=== PATIENT | female | born 1990 | race Caucasian/White ===

== ENCOUNTER 2017-07-27 12:19 | Emergency (ER) | payer OTHER ==
[~2017-07-27 12:19] MED LIST: PROT40TA PO; ZOFR4TAB3 SL
--- NOTE | 2017-07-27 13:11 | PD ---
HPI Chief Complaint Spotting Date Seen: Jul 27, 2017 Time Seen: 13:06 Travel History International Travel<30 Days: No Contact w/Intl Traveler<30Days: No Known Affected Area: No History of Present Illness HPI 26-year-old 2 para 0 at 27+ weeks gestation who reports having small amount of spotting. She denies any contractions or abdominal pain. She reports good movement. No leakage of fluid. History Past Medical History Medical History: Denies Significant Hx Past Surgical History Surgical History: No Previous Surgery Family History Family History: Negative Social History Alcohol Use: No Tobacco Use: No Substance Abuse: No Allergies-Medications (Allergen,Severity, Reaction): Coded Allergies: latex (Unverified Allergy, Severe, THROAT SWELLS, 10/08/16) penicillin G (Unverified Allergy, Intermediate, Rash, 10/08/16) amoxicillin (Unverified Allergy, Unknown, 10/08/16) Home Meds Active Scripts Pantoprazole Sodium (Protonix) 40 Mg Tab, 40 MG PO DAILY for 30 Days, TAB Prov:Jens Whalen DO 09/28/14 Ondansetron (Zofran ODT) 4 Mg Tab, 4 MG SL Q6H Y for nausea, #15 TAB FOR NAUSEA/VOMITING Prov:Jens Whalen DO 09/28/14 Review of Systems Except as stated in HPI: all other systems reviewed are Neg Physical Exam Narrative GENERAL: Well-nourished, well-developed patient. SKIN: Warm and dry. HEAD: Normocephalic and atraumatic. EYES: No scleral icterus. No injection or drainage. ENT: No nasal drainage noted. Mucous membranes pink. Airway patent. NECK: Supple, trachea midline. No JVD. CARDIOVASCULAR: Regular rate and rhythm without murmurs, gallops, or rubs. RESPIRATORY: Breath sounds equal bilaterally. No accessory muscle use. ABDOMEN/GI: Abdomen soft, non-tender, bowel sounds present, no rebound, no guarding Gravid to [-] weeks size Fundal Height: [-] GENITOURINARY: External Genitalia: intact and normal in appearance BUS glands: [-Negative] Cervix: [-] Dilatation: [-Closed] Effacement: [Long-] Station: [High-] Presentation: [-] Membranes: [intact ] Uterine Contractions: [-None] Speculum exam demonstrates a white discharge in the vagina that appears physiologic. There is no evidence of bleeding whatsoever. The area around the anus shows a small amount of bright red blood without obvious hemorrhoid. FHT's: Category: [-1] Baseline: [-] Reactive: [Yes-] Variability: [-] Decels: [-] EXTREMITIES: No cyanosis or edema. BACK: Nontender without obvious deformity. No CVA tenderness. NEUROLOGICAL: Awake and alert. Motor and sensory grossly within normal limits. Five out of 5 muscle strength in all muscle groups. Normal speech. Data Data Vital Signs Reviewed: Yes MDM Medical Record Reviewed: Yes Narrative Course / MDM Assessment: Rectal spotting Plan: We discussed management of constipation and she is scheduled for follow- up visit this week with Dr. Rambo Byers.. Diagnosis Diagnosis: Primary Impression: 27 weeks gestation of Additional Impression: Rectal bleeding Disposition: DISCHARGE HOME Condition: Good Livan Villegas MD Jul 27, 2017 13:11
== END 2017-07-27 13:21 | disposition home or self-care (01) ==
LOC: HOBED 12:19
DX: O26.892 Other specified pregnancy related conditions, second trimester (principal); K62.5 Hemorrhage of anus and rectum; Z3A.27 27 weeks gestation of pregnancy; Z88.0 Allergy status to penicillin
CPT/HCPCS: 99285

== ENCOUNTER 2017-10-18 21:01 | Inpatient (IN) ==
--- NOTE | 2017-10-18 21:30 | ED ---
History of Present Illness Primary Care Physician: NOT REQUIRED History of Present Illness: Chief complaint: Contractions 26-year-old 010, IUP at 39.3 care complicated by rheumatoid arthritis The patient presents complaining of the onset of contractions Friday, 4 days ago. She reports that they increased in intensity and frequency yesterday and she was evaluated last night with a cervical exam of 2 cm dilated. She reports that since 330 this afternoon they have significantly increased in intensity and frequency and are now occurring every 3-4 minutes. There are no alleviating factors. She took numerous showers this afternoon sitting on a shower stool but that is no longer helping. She denies any leaking of fluid or vaginal bleeding. She denies any right upper quadrant or epigastric pain, denies any visual changes. She reports a mild headache, but reports she hasn't been able to sleep for 2 days and hasn't eaten very well over the past 2 days. 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, denies abnormal Paps or STDs PMH: Rheumatoid arthritis FH: Denies PSH: Denies SH: Denies Allergies/Meds: As per EMR Review of Systems All other systems reviewed negative except as stated in HPI PMFSH - History History Provided By: Patient - Medical History Medical History: Medical History (Last Updated 09/18/17 @ 19:15 by Sissy Kline MD) Rheumatoid arthritis (Acute) - Tobacco History Second Hand Smoke Exposure: No Smoking Status: Never smoker - Alcohol History How Often Do You Have a Drink Containing Alcohol: Never - Substance Use History Substance History: No History of Abuse Medications and Allergies Allergies Allergy/AdvReac Type Severity Reaction Status Date / Time latex Allergy Severe THROAT Verified 09/18/17 17:36 SWELLS penicillin G Allergy Intermediate Rash Verified 09/18/17 17:36 amoxicillin Allergy Unknown Rash Verified 09/18/17 17:36 Home Medications Medication Instructions Recorded Confirmed Type Vitamin 1 tab PO DAILY 09/11/17 10/18/17 History Exam Vital signs: Vital Signs 10/18/17 21:19 Temperature 97.8 F Pulse Rate 103 H Respiratory Rate 22 Blood Pressure 145/79 H Narrative: GENERAL: Well-nourished, well-developed patient. SKIN: Warm and dry. No rashes, lesions, masses noted HEAD: Normocephalic and atraumatic. EYES: No scleral icterus. No injection or drainage. ENT: No nasal drainage noted. Mucous membranes pink. Airway patent. NECK: Supple, trachea midline. No JVD. CARDIOVASCULAR: Regular rate and rhythm without murmurs, gallops, or rubs. RESPIRATORY: Breath sounds equal bilaterally. No accessory muscle use. BREASTS: Deferred ABDOMEN/GI: Abdomen soft, non-tender, bowel sounds present, no rebound, no guarding Gravid GENITOURINARY: Normal EGBUS. No cervical or vaginal masses noted, physiologic discharge, grossly normal rugated. SVE 3/complete/-2 BB OW. Ultrasound was placed to confirm cyst cephalic presentation. FHT's: heart tones in the 150s with moderate long-term variability, good accelerations, no decelerations noted. This is a reactive NST and category 1 heart rate tracing. EXTREMITIES: No cyanosis or edema. BACK: Nontender without obvious deformity. NEUROLOGICAL/psychiatric: Awake and alert. Motor and sensory grossly within normal limits. Five out of 5 muscle strength in all muscle groups. Normal speech Grossly normal memory/affect. Grossly normal range of motion. Oriented 3. Results - Labs CBC & Chem 7: 10/18/17 21:30 10/18/17 21:30 Assessment and Plan - Plan Assessment/plan: 1. IUP at 39.3 2. Early active vs late latent labor: Patient presented at 3 cm dilated and completely effaced and is a change from one day prior when her exam was 2 cm dilated and 80% effaced. Expectant management for now, defer further management to Dr. Gregorio. 3. Rheumatoid arthritis: patient reports she is on no medications 4. Gestational Hypertension: will admit for elevated blood pressures at term. No specific signs or symptoms of preeclampsia, although patient reports a mild headache. Will monitor closely. Preeclampsia labs sent to lab. 5. well-being: reassuring testing with reactive NST and category 1 heart rate tracing, continue monitoring 6. Obesity 7. EFW per patient report on 10/07/17 was 8 pounds. Normal gestational 1 hour GCT per patient report. Discussed risks of including shoulder dystocia and risks of delivery if indicated. Risks include but are not limited to pain, infection, bleeding, injury to bladder/bowels/nerves/vessels, injury to baby, need for a repeat operation, need for a blood transfusion, need for hysterectomy, wound infection and breakdown, and other possible risks. All of the patients questions were answered and she will be admitted to Dr. Gregorio who has assumed care for the patient. Discharge Plan - Discharge Condition Condition: Stable - Physicians Team Primary Care Provider: NOT REQUIRED, Attending Provider: Jac Perez Rxs /Orders / Referrals /Forms Prescriptions: No Action Vitamin tablet 1 tab PO DAILY Referrals: Rip Grimaldo MD [Family Provider] - See Instructions NOT REQUIRED, [Primary Care Provider] - See Instructions
[2017-10-18] MEDS ORDERED: fentaNYL Citrate Inj 100 MCG/2 ML Ampul IV.PUSH ONE (21:40)
[2017-10-18 23:13] LABS: Baso # (Auto) 0.1 th/mm3 (0.0-0.2); Baso % (Auto) 0.7 % (0.0-2.0); Eos % (Auto) 0.3 % (0.0-4.0); Hematocrit 32.5 % (35.0-46.0); Hemoglobin 10.9 gm/dL (11.6-15.3); Lymph # (Auto) 1.8 th/mm3 (1.0-4.8); Lymph % (Auto) 11.2 % (9.0-44.0); Mean Corpuscular HGB Conc 33.7 % (32.0-36.0); Mean Corpuscular Hemoglobin 26.8 pg (27.0-34.0); Mean Corpuscular Volume 79.7 fL (80.0-100.0); Mean Platelet Volume 11.1 fL (7.0-11.0); Mono # (Auto) 0.8 th/mm3 (0.0-0.9); Mono % (Auto) 5.2 % (0.0-8.0); Neut # (Auto) 13.3 th/mm3 (1.8-7.7); Neut % (Auto) 82.6 % (16.0-70.0); Platelet Count 202 th/mm3 (150-450); Red Blood Count 4.08 mil/mm3 (4.00-5.30); Red Cell Distribution Width 14.6 % (11.6-17.2); White Blood Count 16.1 th/mm3 (4.0-11.0)
[2017-10-18] MEDS ORDERED: fentaNYL 2MCG-Bupiv 0.125% Epi 150 ML EPIDURAL ONE (23:22)
[2017-10-18] MEDS ORDERED: Sodium Chlor 0.9% Inj 500 ML IV.SIG PRN (23:25)
[2017-10-18] MEDS ORDERED: Sod Chloride 0.9% Inj 1,000 ML IV.CONT PRN (23:25)
[2017-10-18] MEDS ORDERED: Oxytocin 30 Units/500ml Premix 30 UNITS/500 ML BAG IV.SIG ONE (23:25)
[2017-10-18] MEDS ORDERED: Naloxone Inj 0.4 MG/ML Vial IV.PUSH PRN (23:25)
[2017-10-18] MEDS ORDERED: fentaNYL Citrate Inj 100 MCG/2 ML Ampul IV.PUSH PRN ×2 (23:25)
[2017-10-18] MEDS ORDERED: Citric Acid/Sodium Citrate Liq 30 ML UDC PO SCH (23:30)
[2017-10-18 23:38] LABS: Albumin 2.6 g/dL (3.4-5.0); Anion Gap 14 meq/L (5-15); Aspartate Aminotransferase 16 U/L (15-37); Blood Urea Nitrogen 10 mg/dL (7-18); Calcium 8.5 mg/dL (8.5-10.1); Carbon Dioxide 21.3 meq/L (21.0-32.0); Chloride 103 meq/L (98-107); Glomerular Filtration Rate 83 mL/min (>89); Glucose,Random 77 mg/dL (74-106); Potassium 3.6 meq/L (3.5-5.1); Sodium 138 meq/L (136-145)
[2017-10-18 23:39] LABS: Alanine Aminotransferase 14 U/L (10-53)
[2017-10-18 23:41] LABS: Alkaline Phosphatase 161 U/L (45-117); Total Protein 7.7 g/dL (6.4-8.2)
[2017-10-19] MEDS ORDERED: fentaNYL Citrate Inj 100 MCG/2 ML Ampul EPIDURAL ONE (00:19)
[2017-10-19 00:26] LABS: Bacteria,Urine Few /hpf; Bilirubin,Urine Negative (Negative); Clarity,Urine Cloudy (Clear); Color,Urine Yellow (Yellw/Straw); Glucose,Urine (UA) Negative (Negative); Leukocyte Esterase,Urine Large (Negative); Nitrite,Urine Negative (Negative); Specific Gravity,Urine 1.013 (1.002-1.035); Squamous Epithelial Cell,Urine 7 /hpf (0-5)
[2017-10-19] MEDS: fentaNYL 2MCG-Bupiv 0.125% Epi 150 ML EPIDURAL PRN ×3 (00:32→19:13)
[2017-10-19 00:39] LABS: Amphetamine Urine With Conf Neg (Neg); Benzodiazepine Urine With Conf Neg (Neg)
[2017-10-19 02:02] LABS: Protein/Creatinine Ratio,Urine 1.24 (0.00-0.14)
[2017-10-19] MEDS ORDERED: Lidocaine 1% Inj 50 ML Vial ONE (07:18)
[2017-10-19] MEDS ORDERED: Oxytocin 30 Units/500ml Premix 30 UNITS/500 ML BAG IV.SIG PRN (08:18)
[2017-10-19] MEDS ORDERED: Bupivacaine PF 0.25% Inj 10 ML Vial ONE ×2 (09:14→12:52)
--- NOTE | 2017-10-19 09:46 | P.OBGPN ---
S: Doing well, pain controlled, Patient presented for rule out labor, was found to have elevated blood pressures. O: Exam: Cervix 5-6cm/80/-1, SROM prior to this check, blood / clear fluid FHTs: 130s-140s, moderate variability, accelerations present, no decelerations TOCO: Rare contractions A/P 26-year-old at 39 weeks and 2 days admitted for augmentation of labor and preeclampsia without severe features. 1. IUP: Category 1 tracing -Cephalic, GBS negative, EFW 7.5 pounds clinically -EFW (10/07) = 3647g (80%) 2. Labor augmentation: SROm (0950), continue Pitocin, anticipate 3. Preeclampsia without severe features: HELLP labs normal, based on mild range blood pressures and P: C of 1.2.
[2017-10-19] MEDS ORDERED: Lidocaine 2%/Epinephrine 1:200,000 PF Inj 20 ML Vial INFILTRATN ONE (12:00)
[2017-10-19] MEDS ORDERED: Phenylephrine/NS 1000 MCG/10ML Syringe IV.PUSH ONE (12:00)
[2017-10-19] MEDS ORDERED: Citric Acid/Sodium Citrate Liq 30 ML UDC PO SCH (20:45)
[2017-10-19] MEDS ORDERED: fentaNYL Citrate Inj 250 MCG/5 ML Ampul ONE (20:52)
[2017-10-19] MEDS ORDERED: Morphine Sulfate PF Inj 5 MG/10 ML Ampul ONE (20:53)
--- NOTE | 2017-10-19 20:54 | P.OBGPN ---
S: Doing well, feeling exhausted Patient presented for rule out labor, was found to have elevated blood pressures. O: Exam: : complete, +1 station, caput present, OP position, attempted to manual rotate FHTs: 150s, moderate variability, accelerations present, no decelerations TOCO: contractions every 3-5 minutes A/P 26-year-old at 39 weeks and 2 days admitted for augmentation of labor and preeclampsia without severe features. 1. IUP: Category 1 tracing -Cephalic, GBS negative, EFW 7.5 pounds clinically -EFW (10/07) = 3647g (80%) 2. Arrest of descent: Patient has pushed for approximately 2-1/2 hours with minimal to no descent, and OP position via ultrasound, attempted manual rotation and unsuccessful, discussed option of vacuum attempted delivery and patient declined, discussed risks, benefits and expected outcomes and alternatives of . We will proceed within 30 minutes. Give gentamicin, clindamycin and azithromycin for preoperative prophylaxis. - T&C x 2 given plan for , anemia and prolonged labor. 3. Preeclampsia without severe features: HELLP labs normal, based on mild range blood pressures and P: C of 1.2. Avoid use of methergine
[2017-10-19] MEDS ORDERED: SODIUM CHLOR 0.9% IV.SIG ONE (21:00)
[2017-10-19] MEDS ORDERED: Clindamycin Inj 900 MG in Sodium Chlor 0.9% Inj 100 ML IV.SIG ONE (21:00)
[2017-10-19] MEDS ORDERED: Azithromycin Inj 500 MG in Sodium Chlor 0.9% Inj 250 ML IV.SIG ONE (21:00)
[2017-10-19] MEDS ORDERED: Clindamycin 900 mg/NS Premix 900 MG/50 ML PIGGYBACK IV.SIG ONE (21:00)
[2017-10-19] MEDS ORDERED: GENTAMICIN IV.SIG ONE (21:00)
--- NOTE | 2017-10-19 21:05 | P.OP ---
Date of procedure: 10/19/17 Surgeon: Fabio Gregorio MD Operation and Findings: Preoperative diagnosis: 1. Intrauterine at 39 weeks and 2 days 2. Arrest of descent 3. Preeclampsia without severe features 4. Obesity Postop diagnosis 1. Same as above status post primary 2. hemorrhage Procedure 1. Primary low transverse section Surgeon Dr. Fabio Gregorio Protective Signal Repairer: [facility] surgical scrub staff Findings: 1. Viable male infant at 2134, OP position weight, Apgars 6 and 8, weight 3870 g 2. Intact placenta with three-vessel cord at 2136 3. Normal uterus, bilateral fallopian tubes and ovaries 4. Mild uterine atony, laceration to the right ascending uterine artery, superficial abrasions to small superficial veins on the right lateral posterior uterus. Anesthesia: Epidural Specimen: Placenta to disposal Estimated blood loss: 5414-3714 cc Fluid replacement: 1800 cc lactated Ringer's and Pitocin Urine output: 100 cc of concentrated urine clear Via [place] DVT prophylaxis: Sequential compression devices throughout the case Antibiotics: 900 mg IV clindamycin, 500 mg IV azithromycin, 80 mg IV gentamicin preoperatively. Medications: 0.25 mg IM Hemabate x1 Counts: correct x2 Time out done: yes Disposition: Stable to PACU then A stat CBC and coags were collected at the end of the case. Indications: Patient is a 26-year-old 010 now P1011 who presented in early labor however was diagnosed with preeclampsia, she was augmented after her water ruptured spontaneously with Pitocin, she progressed to complete with reassuring heart tones, she pushed for 2.5-3 hours with little to no descent past +1 station with It in an OP position discussed options and patient elected for . Description of procedure: The patient was taken to the operating room and after spinal anesthesia was performed she was positioned and supine position with arms out in a left lateral tilt, the abdomen was prepped and draped in sterile fashion, a Pfannenstiel incision was made and carried down sharply to the fascia which was nicked on either side of the midline, this was extended bilaterally, the fascia was elevated superiorly and inferiorly and the rectus muscles were sharply dissected off the overlying fascia, the peritoneum was entered digitally and retracted laterally. A bladder flap was developed with Metzenbaum scissors at the lower uterine segment, the hysterotomy was made in the lower uterine segment with a scalpel in a curvilinear fashion, it was extended cephalad-caudad manner, a nurse provided assistance from below via the vagina elevating the head out of the pelvis, I inserted my hand into the hysterotomy and the head was elevated to the hysterotomy and with fundal pressure was delivered. With gentle downward and upward guidance the anterior and posterior shoulder was delivered, followed by the torso and lower extremities with ease, the infant had spontaneous cry the cord was clamped and cut, the was handed off to nursing staff after delayed cord clamping was allowed. Pitocin was bolused and with uterine massage and cord traction the placenta was delivered, uterus was cleared of clot and debris, the uterus was exteriorized and the hysterotomy was closed with 2 layers, first with 0 locking delayed absorbable suture, and a second imbricating layer of the same suture. There is a laceration to the right ascending uterine artery and a single [place] stitch of 0 Vicryl was placed. The posterior aspect of the uterus was inspected and there were superficial veins that had small lacerations and using near the ovary. They were grasped coapted and the Bovie applied to the smooth grasper. The vessels were no longer bleeding and hemostasis was appreciated. Adriana powder was applied for reassurance. The abdomen and hysterotomy were irrigated, inspected, and found to be hemostatic. The fascia was closed from left to right with 0 running delayed absorbable suture. The subcutaneous tissue was irrigated, inspected, hemostasis was appreciated. The subcutaneous space was reapproximated with 3-0 Monocryl. The skin was closed with 3-0 Monocryl in a subcuticular fashion and then a dressing was applied and the patient tolerated procedure well was transferred to PACU.
[2017-10-19] MEDS ORDERED: Clindamycin Inj 600 MG/4 ML Vial ONE (21:19)
[2017-10-19] MEDS ORDERED: Carboprost Tromethamine Inj 250 MCG/ML Ampul IM ONE (21:57)
[2017-10-19] MEDS ORDERED: Oxytocin 30 Units/500ml Premix 30 UNITS/500 ML BAG IV.SIG ONE (22:49)
[2017-10-19] MEDS ORDERED: Acetaminophen 325 MG Tablet PO PRN (22:49)
[2017-10-19 23:20] LABS: Baso % (Auto) 0.2 % (0.0-2.0); Hematocrit 28.4 % (35.0-46.0); Hemoglobin 9.2 gm/dL (11.6-15.3); Lymph # (Auto) 0.7 th/mm3 (1.0-4.8); Lymph % (Auto) 5.2 % (9.0-44.0); Mean Corpuscular HGB Conc 32.3 % (32.0-36.0); Mean Corpuscular Hemoglobin 26.1 pg (27.0-34.0); Mean Corpuscular Volume 80.5 fL (80.0-100.0); Mean Platelet Volume 10.3 fL (7.0-11.0); Mono # (Auto) 0.5 th/mm3 (0.0-0.9); Mono % (Auto) 3.9 % (0.0-8.0); Neut # (Auto) 12.5 th/mm3 (1.8-7.7); Neut % (Auto) 90.7 % (16.0-70.0); Platelet Count 171 th/mm3 (150-450); Red Blood Count 3.53 mil/mm3 (4.00-5.30); Red Cell Distribution Width 14.6 % (11.6-17.2); White Blood Count 13.8 th/mm3 (4.0-11.0)
[2017-10-19 23:20] LABS: Activated Partial Thrombo Time 27.2 sec (24.3-30.1)
[2017-10-20] MEDS ORDERED: Naloxone Inj 0.4 MG/ML Vial IV.PUSH PRN (00:09)
[2017-10-20] MEDS ORDERED: Oxytocin 30 Units/500ml Premix 30 UNITS/500 ML BAG IV.SIG PRN (03:50)
[2017-10-20 06:01] LABS: Baso % (Auto) 0.1 % (0.0-2.0); Eos % (Auto) 0.1 % (0.0-4.0); Hematocrit 25.6 % (35.0-46.0); Hemoglobin 8.4 gm/dL (11.6-15.3); Lymph # (Auto) 0.9 th/mm3 (1.0-4.8); Mean Corpuscular HGB Conc 32.8 % (32.0-36.0); Mean Corpuscular Hemoglobin 26.6 pg (27.0-34.0); Mean Corpuscular Volume 80.9 fL (80.0-100.0); Mean Platelet Volume 9.7 fL (7.0-11.0); Mono # (Auto) 0.8 th/mm3 (0.0-0.9); Mono % (Auto) 5.1 % (0.0-8.0); Neut % (Auto) 88.7 % (16.0-70.0); Platelet Count 155 th/mm3 (150-450); Red Blood Count 3.16 mil/mm3 (4.00-5.30); Red Cell Distribution Width 14.7 % (11.6-17.2); White Blood Count 15.8 th/mm3 (4.0-11.0)
[2017-10-20 06:42] LABS: Alanine Aminotransferase 14 U/L (10-53); Albumin 1.8 g/dL (3.4-5.0); Alkaline Phosphatase 106 U/L (45-117); Anion Gap 12 meq/L (5-15); Aspartate Aminotransferase 34 U/L (15-37); Blood Urea Nitrogen 9 mg/dL (7-18); Calcium 7.5 mg/dL (8.5-10.1); Carbon Dioxide 22.5 meq/L (21.0-32.0); Chloride 103 meq/L (98-107); Glomerular Filtration Rate 73 mL/min (>89); Glucose,Random 90 mg/dL (74-106); Sodium 137 meq/L (136-145); Total Protein 5.8 g/dL (6.4-8.2)
[2017-10-20 08:04] LABS: Lymphocytes 5 % (9-44); Monocytes 3 % (0-8); Tallied Nucleated RBC 1 (0-0)
[2017-10-20 08:05] LABS: Platelet Estimate Normal (Normal); Platelet Morphology Normal (Normal)
--- NOTE | 2017-10-20 11:40 | P.PNOB ---
Subjective Post op day: 1 Objective Vital Signs/I&O: Vital Signs 10/19/17 11:39 10/19/17 12:16 10/19/17 12:28 Temperature Pulse Rate 91 H 98 H Respiratory Rate 17 17 Blood Pressure 133/86 128/84 10/19/17 12:43 10/19/17 13:00 10/19/17 13:01 Temperature 97.9 F Pulse Rate 84 93 H 107 H Respiratory Rate 19 19 Blood Pressure 124/78 135/93 H 108/56 L 10/19/17 13:30 10/19/17 13:47 10/19/17 13:55 Temperature Pulse Rate 102 H 96 H Respiratory Rate 20 20 Blood Pressure 146/84 H 127/85 10/19/17 14:04 10/19/17 14:16 10/19/17 14:30 Temperature 98.6 F Pulse Rate 104 H 84 Respiratory Rate 20 20 Blood Pressure 129/89 120/82 10/19/17 14:31 10/19/17 14:46 10/19/17 15:00 Temperature Pulse Rate 108 H 91 H Respiratory Rate 20 Blood Pressure 124/90 131/93 H 10/19/17 15:01 10/19/17 15:28 10/19/17 15:31 Temperature Pulse Rate 105 H 99 H 94 H Respiratory Rate 20 Blood Pressure 127/76 130/84 130/80 10/19/17 15:57 10/19/17 16:00 10/19/17 16:16 Temperature 99.0 F Pulse Rate 104 H Respiratory Rate 20 Blood Pressure 134/90 10/19/17 16:26 10/19/17 16:30 10/19/17 16:56 Temperature Pulse Rate 102 H 90 Respiratory Rate 20 20 Blood Pressure 137/98 H 124/84 10/19/17 17:00 10/19/17 17:16 10/19/17 17:26 Temperature Pulse Rate 94 H 96 H Respiratory Rate 20 Blood Pressure 134/94 H 138/91 H 10/19/17 17:31 10/19/17 17:58 10/19/17 18:00 Temperature 98.0 F Pulse Rate 93 H 99 H Respiratory Rate 20 Blood Pressure 119/74 139/74 10/19/17 18:16 10/19/17 18:30 10/19/17 18:45 Temperature Pulse Rate 102 H 95 H 90 Respiratory Rate 20 Blood Pressure 129/62 131/83 142/79 H 10/19/17 19:00 10/19/17 19:25 10/19/17 19:55 Temperature Pulse Rate 98 H 109 H 107 H Respiratory Rate Blood Pressure 131/82 146/74 H 134/78 10/19/17 20:01 10/19/17 20:10 10/19/17 20:35 Temperature Pulse Rate 98 H 92 H 102 H Respiratory Rate Blood Pressure 112/64 118/74 10/19/17 20:40 10/19/17 20:45 10/19/17 22:49 Temperature 98.4 F Pulse Rate 99 H 97 H Respiratory Rate 20 17 Blood Pressure 104/55 L 10/19/17 23:15 10/19/17 23:30 10/19/17 23:46 Temperature Pulse Rate 92 H 93 H 89 Respiratory Rate 18 16 22 Blood Pressure 127/71 115/62 124/63 10/19/17 23:48 10/20/17 00:55 10/20/17 05:00 Temperature 98.0 F 98.5 F 98.7 F Pulse Rate 89 102 H Respiratory Rate 8 L 20 Blood Pressure 121/69 125/71 10/20/17 08:00 Temperature 99.0 F Pulse Rate 105 H Respiratory Rate 18 Blood Pressure 99/60 L Intake & Output 10/19/17 10/20/17 10/20/17 18:59 06:59 18:59 Intake Total 1000 / 1000 Balance 1000 / 1000 Intake: IV 1000 / 1000 LR 1000 mL Inj 1,000 ML @ 125 1000 / 1000 mls/hr IV.CONT .Q8H [facility] Rx#: [id number] Result Diagrams: 10/20/17 05:23 10/20/17 05:23 Objective Remarks: GENERAL: Well-nourished, well-developed patient. CARDIOVASCULAR: Regular rate and rhythm without murmurs, gallops, or rubs. RESPIRATORY: Breath sounds equal bilaterally. No accessory muscle use. ABDOMEN/GI: Abdomen soft, non-tender, bowel sounds present. Incision: dressing, Clean, dry and intact. Fundus: Firm, non-tender at umbilicus. GENITOURINARY: Light to moderate bleeding. monroe to BSD-clear yellow EXTREMITIES: No cyanosis or edema, non-tender, without signs of DVT. Medications and IVs: Active Medications Acetaminophen (Tylenol) 650 mg PO Q6H PRN PRN Reason: PAIN SCALE 1 TO 2 Diphenhydramine HCl (Benadryl) 50 mg PO Q6H PRN PRN Reason: MILD TO MODERATE ITCHING Stop: 10/21/17 00:08 Diphenhydramine HCl (Benadryl Inj) 25 mg IV.PUSH Q6H PRN PRN Reason: MILD TO MODERATE ITCHING Stop: 10/21/17 00:08 Diphtheria/Pertussis/Tetanus Vacc (Boostrix Vaccine Inj) 0.5 ml IM .ONCE ONE Stop: 10/20/17 16:01 Lactated Ringer's (Lr 1000 Ml Inj) 1,000 mls @ 100 mls/hr IV.CONT .Q10H LINDA Stop: 10/20/17 23:49 Last Admin: 10/20/17 06:01 Dose: Not Given Oxytocin (Pitocin 30 Units/Ns 500 Ml Premix) 30 units in 500 mls @ 100 mls/hr IV.SIG UNSCH PRN PRN Reason: Heavy bleeding Ibuprofen (Motrin) 800 mg PO Q8H PRN PRN Reason: cramping Last Admin: 10/20/17 09:15 Dose: 800 mg Measles/Mumps/Rubella Vaccine Live (M-M-R Ii Vaccine Inj) 0.5 ml SQ .ONCE ONE Stop: 10/20/17 16:01 Miscellaneous Information ([facility] Nursing Information) 1 each OTHER UNSCH PRN PRN Reason: SEE LABEL COMMENTS Stop: 10/21/17 00:08 Miscellaneous Information ([facility] Nursing Information) 1 each OTHER UNSCH PRN PRN Reason: SEE LABEL COMMENTS Stop: 10/21/17 00:08 Naloxone HCl (Narcan Inj) 0.4 mg IV.PUSH UNSCH PRN PRN Reason: SEE LABEL COMMENTS Stop: 10/21/17 00:08 Oxycodone/Acetaminophen (Percocet 5/325 Mg) 1 tab PO Q4H PRN PRN Reason: PAIN SCALE 3 TO 5 Last Admin: 10/20/17 09:14 Dose: 1 tab Oxycodone/Acetaminophen (Percocet 5/325 Mg) 2 tab PO Q4H PRN PRN Reason: PAIN SCALE 6 TO 10 Sodium Chloride (Ns Flush) 2 ml IV.FLUSH BID LINDA Sodium Chloride (Ns Flush) 2 ml IV.FLUSH PRN PRN PRN Reason: FLUSH AFTER USING IV ACCESS Assessment and Plan - Diagnosis (1) Mild pre-eclampsia Code(s): O14.00 - Mild to moderate pre-eclampsia, unspecified trimester Status : Acute Plan: delivered, monitor bp (2) S/P primary low transverse Code(s): Z98.891 - History of uterine scar from previous surgery Status: Acute Plan: routine post op care (3) Anemia Code(s): D64.9 - Anemia, unspecified Status: Acute Plan: treat with daily iron as outpatient once she is no longer taking pain medication - Plan POD #1 pt doing well hgb 8.4, will treat as PP vss pain well managed with oral pain medication pt to ambulate today, get monroe out and shower bonding with infant routine care Discharge Planning: consider dc in 2 days
[2017-10-20] MEDS ORDERED: Diphtheria/Tetanus/Pertussis Vaccine Inj 0.5 ML Syringe IM ONE (16:00)
[2017-10-20] MEDS ORDERED: Measles/Mumps/Rubella Vaccine Inj 0.5 ML Vial SQ ONE (16:00)
[2017-10-21 08:55] LABS: Baso % (Auto) 0.3 % (0.0-2.0); Eos # (Auto) 0.2 th/mm3 (0.0-0.4); Eos % (Auto) 1.3 % (0.0-4.0); Hematocrit 22.1 % (35.0-46.0); Hemoglobin 7.2 gm/dL (11.6-15.3); Lymph # (Auto) 1.7 th/mm3 (1.0-4.8); Lymph % (Auto) 10.7 % (9.0-44.0); Mean Corpuscular HGB Conc 32.5 % (32.0-36.0); Mean Corpuscular Hemoglobin 26.3 pg (27.0-34.0); Mean Platelet Volume 8.7 fL (7.0-11.0); Mono # (Auto) 0.6 th/mm3 (0.0-0.9); Mono % (Auto) 3.6 % (0.0-8.0); Neut # (Auto) 13.1 th/mm3 (1.8-7.7); Neut % (Auto) 84.1 % (16.0-70.0); Platelet Count 179 th/mm3 (150-450); Red Blood Count 2.73 mil/mm3 (4.00-5.30); Red Cell Distribution Width 14.7 % (11.6-17.2); White Blood Count 15.6 th/mm3 (4.0-11.0)
[2017-10-21] MEDS: Simethicone 125 MG Chew Tablet PO PRN ×2 (11:04→23:07)
--- NOTE | 2017-10-21 14:25 | P.PNOB ---
Subjective Post op day: 2 Objective Vital Signs/I&O: Vital Signs 10/20/17 16:00 10/20/17 20:00 10/21/17 00:00 Temperature 97.8 F 98.2 F 99.2 F Pulse Rate 96 H 101 H 121 H Respiratory Rate 18 18 18 Blood Pressure 103/67 122/75 121/77 10/21/17 04:00 10/21/17 05:50 10/21/17 08:00 Temperature 99.7 F H 98.6 F 97.4 F L Pulse Rate 121 H 97 H Respiratory Rate 18 16 Blood Pressure 144/85 H 139/79 10/21/17 13:39 Temperature 97.4 F L Pulse Rate 97 H Respiratory Rate 16 Blood Pressure 139/79 Result Diagrams: 10/21/17 08:45 10/20/17 05:23 Objective Remarks: GENERAL: Well-nourished, well-developed patient. CARDIOVASCULAR: Regular rate and rhythm without murmurs, gallops, or rubs. RESPIRATORY: Breath sounds equal bilaterally. No accessory muscle use. ABDOMEN/GI: Abdomen soft, non-tender, bowel sounds hypoactive, distended with gas. Incision: steri strips Clean, dry and intact. Fundus: Firm, non-tender at umbilicus. GENITOURINARY: Light to moderate bleeding. EXTREMITIES: No cyanosis or edema, non-tender, without signs of DVT. Medications and IVs: Active Medications Acetaminophen (Tylenol) 650 mg PO Q6H PRN PRN Reason: PAIN SCALE 1 TO 2 Oxytocin (Pitocin 30 Units/Ns 500 Ml Premix) 30 units in 500 mls @ 100 mls/hr IV.SIG UNSCH PRN PRN Reason: Heavy bleeding Ibuprofen (Motrin) 800 mg PO Q8H PRN PRN Reason: cramping Last Admin: 10/21/17 04:41 Dose: 800 mg Oxycodone/Acetaminophen (Percocet 5/325 Mg) 1 tab PO Q4H PRN PRN Reason: PAIN SCALE 3 TO 5 Last Admin: 10/20/17 09:14 Dose: 1 tab Oxycodone/Acetaminophen (Percocet 5/325 Mg) 2 tab PO Q4H PRN PRN Reason: PAIN SCALE 6 TO 10 Last Admin: 10/21/17 04:41 Dose: 2 tab Simethicone (Phazyme Chew) 125 mg PO TID PRN PRN Reason: GAS RETENTION Last Admin: 10/21/17 11:04 Dose: 125 mg Sodium Chloride (Ns Flush) 2 ml IV.FLUSH BID LINDA Last Admin: 10/21/17 04:58 Dose: Not Given Sodium Chloride (Ns Flush) 2 ml IV.FLUSH PRN PRN PRN Reason: FLUSH AFTER USING IV ACCESS Assessment and Plan - Diagnosis (1) Mild pre-eclampsia Code(s): O14.00 - Mild to moderate pre-eclampsia, unspecified trimester Status : Acute Plan: delivered, monitor bp (2) S/P primary low transverse Code(s): Z98.891 - History of uterine scar from previous surgery Status: Acute Plan: routine post op care (3) Anemia Code(s): D64.9 - Anemia, unspecified Status: Acute Plan: treat with daily iron as outpatient once she is no longer taking pain medication - Plan POD #2 pt doing well hgb 7.2, will treat as outpatient with daily oral iron enies dizziness, chest pain or SOB with ambulation vss at 0800 pain well managed with oral pain medication bonding with routine care Discharge Planning: dc tomorrow
[2017-10-21] MEDS ORDERED: Senna/Docusate Sodium 8.6/50 MG Tablet PO PRN (16:33)
[2017-10-22 06:03] LABS: Mean Corpuscular HGB Conc 33.9 % (32.0-36.0); Mean Corpuscular Hemoglobin 26.9 pg (27.0-34.0); Mean Corpuscular Volume 79.3 fL (80.0-100.0); Mean Platelet Volume 8.3 fL (7.0-11.0); Platelet Count 187 th/mm3 (150-450); Red Blood Count 2.46 mil/mm3 (4.00-5.30); Red Cell Distribution Width 14.5 % (11.6-17.2); White Blood Count 11.5 th/mm3 (4.0-11.0)
[2017-10-22 06:21] LABS: Hemoglobin 6.6 gm/dL (11.6-15.3)
[2017-10-22 06:22] LABS: Hematocrit 19.5 % (35.0-46.0)
--- NOTE | 2017-10-22 08:37 | P.PNOB ---
Subjective Post op day: 3 Interval history: Doing well Pain is controlled Baby is doing well Dizzy when standing No chest pain or pressure, No SOB Objective Vital Signs/I&O: Vital Signs 10/21/17 13:39 10/21/17 14:45 10/21/17 14:46 Temperature 97.4 F L 98.1 F Pulse Rate 97 H 108 H Respiratory Rate 16 16 Blood Pressure 139/79 134/91 H 10/21/17 20:00 Temperature 98.1 F Pulse Rate 97 H Respiratory Rate 20 Blood Pressure 136/89 Result Diagrams: 10/22/17 05:41 10/20/17 05:23 Objective Remarks: GENERAL: Well-nourished, well-developed patient. CARDIOVASCULAR: Regular rate and rhythm without murmurs, gallops, or rubs. Borderline tachycardic RESPIRATORY: Breath sounds equal bilaterally. No accessory muscle use. ABDOMEN/GI: Abdomen soft, non-tender, bowel sounds present. Incision: Clean, dry and intact. Fundus: Firm, non-tender at umbilicus. GENITOURINARY: Light to moderate bleeding. EXTREMITIES: No cyanosis or edema, non-tender, without signs of DVT. Medications and IVs: Active Medications Acetaminophen (Tylenol) 650 mg PO Q6H PRN PRN Reason: PAIN SCALE 1 TO 2 Oxytocin (Pitocin 30 Units/Ns 500 Ml Premix) 30 units in 500 mls @ 100 mls/hr IV.SIG UNSCH PRN PRN Reason: Heavy bleeding Ibuprofen (Motrin) 800 mg PO Q8H PRN PRN Reason: cramping Last Admin: 10/21/17 23:04 Dose: 800 mg Oxycodone/Acetaminophen (Percocet 5/325 Mg) 1 tab PO Q4H PRN PRN Reason: PAIN SCALE 3 TO 5 Last Admin: 10/21/17 19:08 Dose: 1 tab Oxycodone/Acetaminophen (Percocet 5/325 Mg) 2 tab PO Q4H PRN PRN Reason: PAIN SCALE 6 TO 10 Last Admin: 10/22/17 03:07 Dose: 2 tab Senna/Docusate Sodium (Stefania-Colace) 1 tab PO DAILY PRN PRN Reason: CONSTIPATION Last Admin: 10/21/17 17:49 Dose: 1 tab Simethicone (Phazyme Chew) 125 mg PO TID PRN PRN Reason: GAS RETENTION Last Admin: 10/21/17 23:07 Dose: 125 mg Sodium Chloride (Ns Flush) 2 ml IV.FLUSH BID LINDA Last Admin: 10/22/17 06:18 Dose: Not Given Sodium Chloride (Ns Flush) 2 ml IV.FLUSH PRN PRN PRN Reason: FLUSH AFTER USING IV ACCESS Assessment and Plan - Diagnosis (1) Mild pre-eclampsia Code(s): O14.00 - Mild to moderate pre-eclampsia, unspecified trimester Status : Acute Plan: delivered, monitor bp (2) S/P primary low transverse Code(s): Z98.891 - History of uterine scar from previous surgery Status: Acute Plan: routine post op care (3) Anemia Code(s): D64.9 - Anemia, unspecified Status: Acute Plan: treat with daily iron as outpatient once she is no longer taking pain medication - Plan POD #2 Severe anemia..Large blood loss in the OR. Will repeat the CBC and give 2 units of PRBCs if still very low Discussed the RBA of blood transfusion in some detail. Mild pre eclampsia will follow up with BPs Clinically she looks ok Discharge Planning: dc tomorrow
[2017-10-22 09:02] LABS: Mean Corpuscular HGB Conc 34.1 % (32.0-36.0); Mean Corpuscular Hemoglobin 27.2 pg (27.0-34.0); Mean Corpuscular Volume 79.7 fL (80.0-100.0); Mean Platelet Volume 7.7 fL (7.0-11.0); Platelet Count 194 th/mm3 (150-450); Red Blood Count 2.53 mil/mm3 (4.00-5.30); Red Cell Distribution Width 14.7 % (11.6-17.2); White Blood Count 10.4 th/mm3 (4.0-11.0)
[2017-10-22] MEDS: Simethicone 125 MG Chew Tablet PO PRN (09:03)
[2017-10-22] MEDS: Bisacodyl 10 MG Supp RECTAL SCH (09:10)
[2017-10-22 09:19] LABS: Hematocrit 20.1 % (35.0-46.0); Hemoglobin 6.9 gm/dL (11.6-15.3)
[2017-10-22] MEDS ORDERED: Sodium Chlor 0.9% Inj 100 ML IV.SIG ONE (11:00)
[2017-10-22 18:45] VITALS: O2SAT 94
[2017-10-23 02:45] LABS: Hematocrit 29.8 % (35.0-46.0); Hemoglobin 10.1 gm/dL (11.6-15.3); Mean Corpuscular HGB Conc 33.9 % (32.0-36.0); Mean Corpuscular Volume 79.8 fL (80.0-100.0); Mean Platelet Volume 8.1 fL (7.0-11.0); Platelet Count 235 th/mm3 (150-450); Red Blood Count 3.74 mil/mm3 (4.00-5.30); Red Cell Distribution Width 14.6 % (11.6-17.2); White Blood Count 10.5 th/mm3 (4.0-11.0)
[2017-10-23] MEDS: Bisacodyl 10 MG Supp RECTAL SCH (09:10)
[2017-10-23 09:23] VITALS: BP 127/73
[2017-10-23 09:24] VITALS: PULSE 80; RESP 20; TEMP 97.7
--- NOTE | 2017-10-23 10:21 | P.PNOB ---
Subjective Post op day: 4 Objective Vital Signs/I&O: Vital Signs 10/22/17 13:56 10/22/17 14:13 10/22/17 14:30 Temperature 97.7 F 97.9 F 98.2 F Pulse Rate 85 91 H 88 Respiratory Rate 16 16 16 Blood Pressure 138/87 143/93 H 147/94 H Pulse Oximetry 97 98 10/22/17 15:00 10/22/17 15:30 10/22/17 16:00 Temperature 99.0 F 98.1 F 98.2 F Pulse Rate 95 H 93 H 95 H Respiratory Rate 16 16 16 Blood Pressure 143/79 H 150/90 H 126/87 Pulse Oximetry 95 95 95 10/22/17 16:30 10/22/17 17:00 10/22/17 18:11 Temperature 97.6 F 98.2 F 98.4 F Pulse Rate 94 H 93 H 98 H Respiratory Rate 16 16 16 Blood Pressure 138/81 138/81 127/88 Pulse Oximetry 96 95 96 10/22/17 18:43 10/22/17 19:15 10/22/17 19:45 Temperature 98.3 F 97.9 F 97.9 F Pulse Rate 97 H 95 H 91 H Respiratory Rate 18 18 18 Blood Pressure 134/84 153/95 H 133/79 Pulse Oximetry 94 L 10/22/17 20:15 10/22/17 20:45 10/22/17 22:38 Temperature 98.1 F 98.1 F 101.0 F H Pulse Rate 92 H 102 H 90 Respiratory Rate 18 18 20 Blood Pressure 136/83 127/80 147/91 H Pulse Oximetry 10/22/17 23:07 10/23/17 00:00 10/23/17 04:00 Temperature 100.6 F H 98.5 F 98.3 F Pulse Rate 97 H 84 Respiratory Rate 18 18 Blood Pressure 145/87 H 122/76 Pulse Oximetry 10/23/17 08:50 Temperature 97.7 F Pulse Rate 80 Respiratory Rate 20 Blood Pressure 127/73 Pulse Oximetry Intake & Output 10/22/17 10/23/17 10/23/17 18:59 06:59 18:59 Intake Total 400 / 400 Balance 400 / 400 Intake: Intake (Blood Product) Amt 400 / 400 Rbc As-3 Leukoreduced Unit 400 / 400 [id number] Rbc As-3 Leukoreduced Unit 0 / 0 [id number] Result Diagrams: 10/23/17 02:30 10/20/17 05:23 Objective Remarks: GENERAL: Well-nourished, well-developed patient. CARDIOVASCULAR: Regular rate and rhythm without murmurs, gallops, or rubs. RESPIRATORY: Breath sounds equal bilaterally. No accessory muscle use. ABDOMEN/GI: Abdomen soft, non-tender, bowel sounds present. Incision: steri strips, Clean, dry and intact. Fundus: Firm, non-tender at umbilicus. GENITOURINARY: Light to moderate bleeding. EXTREMITIES: No cyanosis or slight bilateral edema to lower extremities, non- tender, without signs of DVT. Medications and IVs: Active Medications Acetaminophen (Tylenol) 650 mg PO Q6H PRN PRN Reason: PAIN SCALE 1 TO 2 Bisacodyl (Dulcolax Supp) 10 mg RECTAL DAILY LINDA Last Admin: 10/23/17 09:10 Dose: Not Given Diphenhydramine HCl (Benadryl) 25 mg PO Q6HR LINDA Last Admin: 10/23/17 09:10 Dose: Not Given Oxytocin (Pitocin 30 Units/Ns 500 Ml Premix) 30 units in 500 mls @ 100 mls/hr IV.SIG UNSCH PRN PRN Reason: Heavy bleeding Ibuprofen (Motrin) 800 mg PO Q8H PRN PRN Reason: cramping Last Admin: 10/23/17 04:17 Dose: 800 mg Oxycodone/Acetaminophen (Percocet 5/325 Mg) 1 tab PO Q4H PRN PRN Reason: PAIN SCALE 3 TO 5 Last Admin: 10/23/17 09:10 Dose: 1 tab Oxycodone/Acetaminophen (Percocet 5/325 Mg) 2 tab PO Q4H PRN PRN Reason: PAIN SCALE 6 TO 10 Last Admin: 10/23/17 04:17 Dose: 2 tab Senna/Docusate Sodium (Stefania-Colace) 1 tab PO DAILY PRN PRN Reason: CONSTIPATION Last Admin: 10/21/17 17:49 Dose: 1 tab Simethicone (Phazyme Chew) 125 mg PO TID PRN PRN Reason: GAS RETENTION Last Admin: 10/22/17 09:03 Dose: 125 mg Sodium Chloride (Ns Flush) 2 ml IV.FLUSH BID LINDA Last Admin: 10/23/17 05:02 Dose: Not Given Sodium Chloride (Ns Flush) 2 ml IV.FLUSH PRN PRN PRN Reason: FLUSH AFTER USING IV ACCESS Assessment and Plan - Diagnosis (1) Mild pre-eclampsia Code(s): O14.00 - Mild to moderate pre-eclampsia, unspecified trimester Status : Acute Plan: delivered, monitor bp (2) S/P primary low transverse Code(s): Z98.891 - History of uterine scar from previous surgery Status: Acute Plan: routine post op care (3) Anemia Code(s): D64.9 - Anemia, unspecified Status: Acute Plan: treat with daily iron as outpatient once she is no longer taking pain medication - Plan POD #4 pt feeling better after blood transfusion hgb 10 pain well managed with oral medications Mild pre eclampsia will follow up with BPs Clinically she looks ok routine care Discharge Planning: dc home today
--- NOTE | 2017-10-23 10:57 | P.DS ---
Date of admission: 10/18/17 22:52 Primary care physician: NOT REQUIRED Attending physician on discharge: Jac Perez Anticipated date of discharge: 10/23/17 Brief History from admission: Chief complaint: Contractions 26-year-old 010, IUP at 39.3 care complicated by rheumatoid arthritis The patient presents complaining of the onset of contractions Friday, 4 days ago. She reports that they increased in intensity and frequency yesterday and she was evaluated last night with a cervical exam of 2 cm dilated. She reports that since 330 this afternoon they have significantly increased in intensity and frequency and are now occurring every 3-4 minutes. There are no alleviating factors. She took numerous showers this afternoon sitting on a shower stool but that is no longer helping. She denies any leaking of fluid or vaginal bleeding. She denies any right upper quadrant or epigastric pain, denies any visual changes. She reports a mild headache, but reports she hasn't been able to sleep for 2 days and hasn't eaten very well over the past 2 days. 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 1, denies abnormal Paps or STDs PMH: Rheumatoid arthritis FH: Denies PSH: Denies SH: Denies Allergies/Meds: As per EMR DS: Diagnosis - Discharge Diagnosis (1) Mild pre-eclampsia Status: Acute (2) S/P primary low transverse Status: Acute (3) Anemia Status: Acute DS: Medications - Discharge Medications Prescriptions: ibuprofen 800 mg PO Q8H PRN #30 tab PRN Reason: cramping oxycodone-acetaminophen 1 - 2 tab PO Q4H PRN #30 tab PRN Reason: Pain Scale 3 To 5 DS: Summary Hospital Course: term labor mild pre-eclampsia arrest of descent, primary c section anemia-blood transfusions routine post op care - Time Spent with Patient Total time spent providing and/or coordinating discharge services: Less than 30 minutes Exam Vital signs: Vital Signs 10/22/17 13:56 10/22/17 14:13 10/22/17 14:30 Temperature 97.7 F 97.9 F 98.2 F Pulse Rate 85 91 H 88 Respiratory Rate 16 16 16 Blood Pressure 138/87 143/93 H 147/94 H Pulse Oximetry 97 98 10/22/17 15:00 08/29/18 15:30 10/22/17 16:00 Temperature 99.0 F 98.1 F 98.2 F Pulse Rate 95 H 93 H 95 H Respiratory Rate 16 16 16 Blood Pressure 143/79 H 150/90 H 126/87 Pulse Oximetry 95 95 95 10/22/17 16:30 10/22/17 17:00 10/22/17 18:11 Temperature 97.6 F 98.2 F 98.4 F Pulse Rate 94 H 93 H 98 H Respiratory Rate 16 16 16 Blood Pressure 138/81 138/81 127/88 Pulse Oximetry 96 95 96 10/22/17 18:43 10/22/17 19:15 10/22/17 19:45 Temperature 98.3 F 97.9 F 97.9 F Pulse Rate 97 H 95 H 91 H Respiratory Rate 18 18 18 Blood Pressure 134/84 153/95 H 133/79 Pulse Oximetry 94 L 10/22/17 20:15 10/22/17 20:45 10/22/17 22:38 Temperature 98.1 F 98.1 F 101.0 F H Pulse Rate 92 H 102 H 90 Respiratory Rate 18 18 20 Blood Pressure 136/83 127/80 147/91 H Pulse Oximetry 10/22/17 23:07 10/23/17 00:00 10/23/17 04:00 Temperature 100.6 F H 98.5 F 98.3 F Pulse Rate 97 H 84 Respiratory Rate 18 18 Blood Pressure 145/87 H 122/76 Pulse Oximetry 10/23/17 08:50 Temperature 97.7 F Pulse Rate 80 Respiratory Rate 20 Blood Pressure 127/73 Pulse Oximetry Intake & Output 10/22/17 10/23/17 10/23/17 18:59 06:59 18:59 Intake Total 400 / 400 Balance 400 / 400 Intake: Intake (Blood Product) Amt 400 / 400 Rbc As-3 Leukoreduced Unit 400 / 400 [id number] Rbc As-3 Leukoreduced Unit 0 / 0 [id number] Narrative: see post op note Results Procedures completed during hospitalization: c section Labs on day of discharge: Labs from last 24 hours 10/23/17 10/22/17 10/18/17 02:30 10:25 21:10 WBC 10.5 RBC 3.74 L Hgb 10.1 L D Hct 29.8 L MCV 79.8 L MCH 27.0 MCHC 33.9 RDW 14.6 Plt Count 235 MPV 8.1 Ur Buprenorphine Negative Ur Heroin Screen Negative Urine Oxycodone Negative Ur Methadone Negative U Hydromorphone Confirm Negative Urine Fentanyl Negative Urine Gabapentin Negative Ur Phencyclidine (PCP) Negative Urine MDPV Negative Ur MDMA & Metabolites Negative Ur Synth THC (K2) Negative Blood Type O Positive Antibody Screen Negative MTS Gel Crossmatch See Detail Bld Prod Order Comment Discharge Plan - Discharge Disposition Patient Disposition: 01 Discharge Home - Discharge Condition Condition: Stable - Discharge Order Discharge Orders: Discharge Order (Routine); Ordered 10/23/17 Ordered By: Silvana Johnson CONFIGURATION DEVELOPER Clear for Discharge (Routine); Ordered 10/23/17 Ordered By: Silvana Johnson - Physicians Team Primary Care Provider: NOT REQUIRED, Attending Provider: Jac Perez
== END 2017-10-23 14:18 | disposition home or self-care (01) ==
LOC: HOBED 21:01 → H2E 22:52 → H1EA 10-20 00:24
PROVIDERS: ADMIT Obstetrics & Gynecology; ATTEND Obstetrics & Gynecology